=== PATIENT | female | born 1955 | race Caucasian/White ===

== ENCOUNTER 2018-05-21 08:39 | Outpatient (CLI) | payer MEDICARE, BC ==
--- NOTE | 2018-05-21 09:53 | MMO ---
BILATERAL SCREENING MAMMOGRAM: HISTORY: A 63-year-old female for screening mammography. COMPARISON: 04/26/17, 04/05/16, 03/24/15. FINDINGS: Bilateral MLO and CC views of the breasts show heterogeneously dense breast parenchyma, which may low er the sensitivity of mammography. Stable benign-appearing calcifications are seen in both breasts. Vascular calcifications are seen. There is no evidence of suspicious mass, suspicious clustered bhanu rocalcifications, or area of architectural distortion. Interpretation of this mammogram is performed with the assistance of computer-aided detection. IMPRESSION: BI-RADS category 2 - benign findings. Annual screening mammography is recommended. BIRADS 2: Benign Finding(s) Routine annual screening mammography (for women over age 40) POS: [facility]
== END 2018-05-21 08:40 | disposition home or self-care (01) ==
LOC: SCSMAMMO 08:39
PROVIDERS: ATTEND Obstetrics & Gynecology
DX: Z12.31 Encounter for screening mammogram for malignant neoplasm of breast (principal)
CPT/HCPCS: 77067